=== PATIENT | female | born 1955 | race Caucasian/White ===

== ENCOUNTER 2019-04-29 05:56 | Emergency (ER) | payer OTHER ==
--- NOTE | 2019-04-29 06:12 | EDM.PDOC ---
ED HPI GENERAL MEDICAL PROBLEM - General Chief Complaint: Lower Extremity Injury/Pain Stated Complaint: LEFT LEG IS SWOLLEN- RETAINING WATER Time Seen by Provider: 04/29/19 06:08 Source of Information: Reports: Patient History Limitations: Reports: No Limitations - History of Present Illness INITIAL COMMENTS - FREE TEXT/NARRATIVE: CC leg swelling HPI: This is a 63-year-old female who staying in the hospital with a sick family member and has been standing up a lot she has a history of arthritis and has been noticing some swelling around her knee. She denies any chest pain or shortness of breath. Denies any cardiac history. Osteoarthritis PMHX/PSHX: Social History: Negative for tobacco, negative for alcohol, negative for street drugs or marijuana Family history: Hypertension ROS: see chart PE: VS afebrile vital signs stable General: No apparent distress Head: Atraumatic normocephalic no lumps bumps or bruises Eyes: EOMI PERRLA Ears: TMs intact no hemotympanum no signs of infection no mastoid tenderness Nose: No epistaxis nares patent no septal wall hematoma Throat: No pharyngeal erythema or exudate no tonsillar enlargement Neck: Supple, no cervical lymphadenopathy Chest wall: No point tenderness Heart: Regular rate and rhythm without murmur gallop or rub Lungs: Clear to auscultation and percussion without rales rhonchi or wheeze Abdomen: Soft nontender nondistended without guarding rigidity or rebound Neck: No spinal point tenderness full range of motion in all 6 directions Back: No spinal paraspinal or CVA tenderness Extremities: full rom through out. no effusions no laxity to varus and valgus stress at 0 and 30 degrees of flexion drawer test negative patient has 1+ pitting edema on the left lower extremity skin: Warm dry intact no rashes neurologic: cranial nerves II through XII intact. No focal motor or sensory deficits noted MDM: Differential diagnosis: Fracture CHF cellulitis DVT ED course: Patient has no risk factors for DVT I suspect she has been standing a lot in the hospital which is caused some inflammation of her left knee which is led to the swelling. She has no shortness of breath or chest pain no signs of congestive failure. No calf tenderness. No signs of a DVT or pulmonary embolism. No signs of a joint effusion or cellulitis. Diagnosis: Left knee swelling/arthritis Disposition: Home - Related Data Allergies Allergy/AdvReac Type Severity Reaction Status Date / Time amoxicillin trihydrate Allergy Rash Verified 04/29/19 06:06 [From Augmentin] potassium clavulanate Allergy Rash Verified 04/29/19 06:06 [From Augmentin] Sulfa (Sulfonamide Allergy Cannot Verified 04/29/19 06:06 Antibiotics) Remember Home Meds: Home Meds Calcium Polycarbophil [Fibercon] 2 tab PO DAILY 06/13/13 [History] Flurazepam [Dalmane] 1 cap PO QPM 06/13/13 [History] Oxybutynin [Oxybutynin ER] 10 mg PO DAILY 06/13/13 [History] Venlafaxine [Venlafaxine ER] 75 mg PO TID 06/13/13 [History] Ascorbic Acid/Cod Liver Oil [Cod Liver Oil] 1 each PO DAILY 04/07/16 [History] Azithromycin [Zithromax] 250 mg PO DAILY #6 tablet 04/07/16 [Rx] Cholecalciferol (Vitamin D3) [D-2000] 2,000 unit PO DAILY 04/07/16 [History] Cyclobenzaprine [Flexeril] 10 mg PO ONETIME PRN 04/07/16 [History] Desmopressin Acetate 0.1 mg PO QPM 04/07/16 [History] Fluticasone Propionate [Flonase] 0 gm NASBOTH DAILY 04/07/16 [History] Fluticasone/Salmeterol [Advair Diskus 500-50] 1 puff INH BID 04/07/16 [History] Glucosamine/D3/Boswellia Sangeetha [Osteo Bi-Flex Caplet] 1 each PO BID 04/07/16 [ History] L.acidoph,Paracasei, B.lactis [Probiotic] 1 each PO DAILY 04/07/16 [History] Meth/Meblue/Sod Phos/Psal/Hyos [Uribel] 1 tab PO DAILY 04/07/16 [History] Montelukast [Singulair] 10 mg PO BEDTIME 04/07/16 [History] Nitrofurantoin Macrocrystal [Macrodantin] 50 mg PO ONETIME 04/07/16 [History] Pantoprazole [Protonix] 40 mg PO ONETIME 04/07/16 [History] Topiramate [Topamax] 100 mg PO BID 04/07/16 [History] hydrOXYzine HCl [Atarax] 25 mg PO TID 04/07/16 [History] Past Medical History Respiratory History: Reports: Asthma, Other (See Below) Other Respiratory History: "IC" Gastrointestinal History: Reports: Hemorrhoids Genitourinary History: Reports: Other (See Below) Other Genitourinary History: [employer] 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 ED EXAM, GENERAL - Physical Exam Exam: See Below Free Text/Narrative:: See my note Departure - Departure Time of Disposition: 06:11 Disposition: Home, Home Health Agency 06 Clinical Impression: Arthritis - Discharge Information Referrals: PCP,Not In Area [Primary Care Provider] - Additional Instructions: The following information is given to patients seen in the emergency department who are being discharged to home. This information is to outline your options for follow-up care. We provide all patients seen in our emergency department with a follow-up referral. The need for follow-up, as well as the timing and circumstances, are variable depending upon the specifics of your emergency department visit. If you don't have a primary care physician on staff, we will provide you with a referral. We always advise you to contact your personal physician following an emergency department visit to inform them of the circumstance of the visit and for follow-up with them and/or the need for any referrals to a consulting specialist. The emergency department will also refer you to a specialist when appropriate. This referral assures that you have the opportunity for follow-up care with a specialist. All of these measure are taken in an effort to provide you with optimal care, which includes your follow-up. Under all circumstances we always encourage you to contact your private physician who remains a resource for coordinating your care. When calling for follow-up care, please make the office aware that this follow-up is from your recent emergency room visit. If for any reason you are refused follow-up, please contact the Emergency Department at and asked to speak to the emergency department charge nurse. Try a low-sodium diet. Try to elevate the leg as much as possible. Take Tylenol or ibuprofen for your discomfort. Follow-up with your primary care doctor in the next week if not getting better.
[2019-04-29 06:28] VITALS: BP 112/69; PULSE 75
== END 2019-04-29 06:26 | disposition home health service (06) ==
LOC: MW.ED 05:56
DX: M17.12 Unilateral primary osteoarthritis, left knee (principal); Z88.1 Allergy status to other antibiotic agents; Z88.2 Allergy status to sulfonamides; Z79.899 Other long term (current) drug therapy
CPT/HCPCS: 99283